=== PATIENT | male | born 1940 | race Caucasian/White ===

== ENCOUNTER 2017-09-07 16:58 | Inpatient (IN) | payer MEDICARE ==
[~2017-09-07] VITALS: Ht 182.9 cm; Wt 86.2 kg
[2017-09-07 18:17] LABS: BASOPHILS % 1.1 % (0.0-2.0); EOSINOPHILS % 6.6 % (0.0-5.0); MEAN CORPUSCULAR HEMOGLOBIN 25.5 pg (28.0-32.0); MEAN CORPUSCULAR VOLUME 82.2 fL (80.0-94.0); MEAN PLATELET VOLUME 8.4 fl (7.4-10.4); MONOCYTES % 8.1 % (2.0-8.0); NEUTROPHILS % 66.2 % (40.0-76.0); PLATELET 267 x1000/uL (130-400); RED BLOOD CELL COUNT 2.54 mill/uL (4.7-6.1); RED CELL DISTRIBUTION WIDTH 18.5 % (11.6-14.6)
[2017-09-07 18:19] LABS: CARBON DIOXIDE 18 mEq/L (21-32); CHLORIDE 114 mEq/L (98-107)
[2017-09-07 18:22] LABS: INR 1.1; PARTIAL THROMBOPLASTIN TIME 28.5 sec (23.4-31.0)
[2017-09-07 18:25] LABS: HEMATOCRIT. 20.9 % (42.0-52.0); HEMOGLOBIN. 6.5 g/dL (14.0-18.0)
[2017-09-07 18:28] LABS: PHOSPHORUS 4.8 mg/dL (2.5-4.9); TROPONIN I < 0.02 ng/mL (0.00-0.04)
[2017-09-07 19:00] LABS: TOTAL IRON BINDING CAPACITY 418 ug/dL (250-450)
[2017-09-07] MEDS ORDERED: SODIUM CHLORIDE 0.9% 1,000 ML IV SCH (20:49)
[2017-09-07] MEDS ORDERED: ZOLPIDEM TARTRATE 5MG TABLET PO PRN (21:00)
[2017-09-07] MEDS ORDERED: DOCUSATE SODIUM 100MG CAPSULE PO PRN (21:00)
[2017-09-07] MEDS ORDERED: ONDANSETRON HCL 4MG/2ML VIAL IV PRN (21:00)
[2017-09-07] MEDS ORDERED: ACETAMINOPHEN 325MG TABLET PO PRN (21:00)
[2017-09-07] MEDS ORDERED: CLONIDINE 0.1MG TABLET PO PRN (21:00)
[2017-09-07] MEDS ORDERED: IPRATROPIUM/ALBUTEROL 0.5-3(2.5)MG/3ML NEB INH PRN (21:00)
[2017-09-07 22:05] VITALS: BP 147/79
[2017-09-07 22:42] VITALS: BP 131/78
[2017-09-08] VITALS (14 sets, daily range): BP systolic 113–157; BP diastolic 57–90
[2017-09-08] MEDS ORDERED: INFLUENZA VIRUS VACCINE 0.5ML SYR IM ONE (08:00)
[2017-09-08] MEDS: PANTOPRAZOLE SODIUM 40 MG/VIAL IV SCH (08:43)
[2017-09-08] MEDS: FERROUS SULFATE 325MG TABLET PO SCH ×3 (08:44→18:52)
[2017-09-08] MEDS ORDERED: LIDOCAINE HCL 2% JELLY 5ML TOP NR (11:45)
[2017-09-08 13:20] LABS: BASOPHILS % 0.9 % (0.0-2.0); EOSINOPHILS % 1.4 % (0.0-5.0); HEMATOCRIT. 21.1 % (42.0-52.0); LYMPHOCYTES % 9.5 % (20.0-50.0); MEAN CORPUSCULAR HEMOGLOBIN 25.4 pg (28.0-32.0); MEAN CORPUSCULAR VOLUME 82.6 fL (80.0-94.0); MEAN PLATELET VOLUME 8.7 fl (7.4-10.4); MONOCYTES % 5.7 % (2.0-8.0); NEUTROPHILS % 82.5 % (40.0-76.0); PLATELET 230 x1000/uL (130-400); RED BLOOD CELL COUNT 2.55 mill/uL (4.7-6.1); RED CELL DISTRIBUTION WIDTH 18.4 % (11.6-14.6)
[2017-09-08 13:23] LABS: HEMOGLOBIN. 6.5 g/dL (14.0-18.0)
[2017-09-08 13:52] LABS: CARBON DIOXIDE 20 mEq/L (21-32); CHLORIDE 117 mEq/L (98-107); CREATINE KINASE 74 IU/L (39-308); PHOSPHORUS 3.8 mg/dL (2.5-4.9)
[2017-09-08 15:54] LABS: CLARITY URINE CLEAR (CLEAR); COLOR URINE YELLOW (YELLOW); GLUCOSE URINE NEGATIVE (NEGATIVE); KETONES URINE NEGATIVE (NEGATIVE); LEUKOCYTE ESTERASE URINE NEGATIVE (NEGATIVE); NITRITE URINE NEGATIVE (NEGATIVE); OCCULT BLOOD URINE NEGATIVE (NEGATIVE); PH URINE 5.5 (4.5-8.0); PROTEIN URINE NEGATIVE (NEGATIVE); SPECIFIC GRAVITY URINE 1.013 (1.005-1.030); UROBILINOGEN URINE 0.2 E.U./dL (0.2-1.0)
[2017-09-08] MEDS ORDERED: SORBITOL 70% SOLN 30ML PO NR ×2 (16:00→20:00)
[2017-09-08 16:16] LABS: *AMPHETAMINES SCREEN URINE NEGATIVE (NEGATIVE); *BARBITURATES SCREEN URINE NEGATIVE (NEGATIVE); *BENZODIAZEPINES SCREEN URINE NEGATIVE (NEGATIVE); *COCAINE SCREEN URINE NEGATIVE (NEGATIVE); CANNABINOID URINE SCREEN NEGATIVE (NEGATIVE); METHADONE URINE SCREEN NEGATIVE (NEGATIVE); OPIATES URINE SCREEN NEGATIVE (NEGATIVE); PHENCYCLIDINE URINE SCREEN NEGATIVE (NEGATIVE)
[2017-09-08 18:48] LABS: T4 FREE 0.94 ng/dL (0.76-1.46)
[2017-09-08 19:15] LABS: VITAMIN B12 SERUM 585 pg/mL (211-911)
[2017-09-08 19:19] LABS: FOLIC ACID (FOLATE) SERUM > 20.00 ng/mL (>5.38)
[2017-09-08] MEDS ORDERED: ASCORBIC ACID 500MG/5ML 120ML PO SCH (21:00)
[2017-09-08] MEDS: ASCORBIC ACID 500 MG TABLET PO SCH (22:08)
[2017-09-08 23:16] LABS: HEMATOCRIT 20.2 % (42.0-52.0); HEMOGLOBIN 6.5 g/dL (14.0-18.0)
[2017-09-09] VITALS (8 sets, daily range): BP systolic 94–126; BP diastolic 57–77
[2017-09-09] MEDS ORDERED: NA PHOS,M-B/NA PHOS,DI-BA ENEMA 118ML PR NR (06:00)
[2017-09-09 06:54] LABS: INR 1.1; PARTIAL THROMBOPLASTIN TIME 26.1 sec (23.4-31.0); PROTHROMBIN TIME 11.4 sec (9.4-11.6)
[2017-09-09 07:05] LABS: HEMATOCRIT. 24.6 % (42.0-52.0); HEMOGLOBIN. 7.9 g/dL (14.0-18.0); MEAN CORPUSCULAR HEMOGLOBIN 26.4 pg (28.0-32.0); MEAN CORPUSCULAR VOLUME 82.6 fL (80.0-94.0); MEAN PLATELET VOLUME 9.1 fl (7.4-10.4); PLATELET 247 x1000/uL (130-400); RED BLOOD CELL COUNT 2.98 mill/uL (4.7-6.1)
[2017-09-09] MEDS: FERROUS SULFATE 325MG TABLET PO SCH ×3 (07:50→18:00)
[2017-09-09 08:10] LABS: AMYLASE 91 IU/L (25-115); CARBON DIOXIDE 17 mEq/L (21-32); CHLORIDE 119 mEq/L (98-107)
[2017-09-09] MEDS: ASCORBIC ACID 500 MG TABLET PO SCH ×2 (09:00→21:33)
[2017-09-09] MEDS: PANTOPRAZOLE SODIUM 40 MG/VIAL IV SCH (09:17)
[2017-09-09] MEDS: SODIUM CHLORIDE 0.45% 1,000 ML IV SCH ×2 (10:00→21:33)
[2017-09-09] MEDS ORDERED: MIDAZOLAM HCL 5 MG/5 ML VIAL ONE (11:16)
[2017-09-09] MEDS ORDERED: FENTANYL CITRATE/PF 50MCG/ML 2ML VIAL ONE (11:16)
[2017-09-09] MEDS ORDERED: FENTANYL CITRATE/PF 50MCG/ML 2ML VIAL IV ONE (11:33)
[2017-09-09] MEDS ORDERED: MIDAZOLAM HCL 5 MG/5 ML VIAL IV ONE (11:38)
[2017-09-09] MEDS: DIATR MEGLU/DIATRIZOATE SOLN 30ML PO SCH ×2 (14:46→16:01)
[2017-09-09 16:26] LABS: PLATELET ESTIMATE NORMAL
[2017-09-09 17:12] LABS: ANTI-NUCLEAR ANTIBODIES DIRECT Negative (Negative)
[2017-09-09] MEDS ORDERED: DIATR MEGLU/DIATRIZOATE SOLN 120ML ONE (17:12)
[2017-09-10] VITALS (8 sets, daily range): BP systolic 106–120; BP diastolic 50–67
[2017-09-10 06:13] LABS: A/G RATIO 1.4 (0.7-1.7); ALBUMIN 3.6 g/dL (2.9-4.4); ALPHA-1-GLOBULIN 0.2 g/dL (0.0-0.4); ALPHA-2-GLOBULIN 0.7 g/dL (0.4-1.0); BETA GLOBULIN 0.9 g/dL (0.7-1.3); COMPLEMENT C3 115 mg/dL (82-167); GAMMA GLOBULINS 0.8 g/dL (0.4-1.8); GLOBULIN TOTAL 2.6 g/dL (2.2-3.9); M-SPIKE Not Observed g/dL (Not Observed); TOTAL PROTEIN SERUM 6.2 g/dL (6.0-8.5)
[2017-09-10 07:02] LABS: BASOPHILS % 0.9 % (0.0-2.0); EOSINOPHILS % 3.2 % (0.0-5.0); HEMATOCRIT. 22.7 % (42.0-52.0); HEMOGLOBIN. 7.3 g/dL (14.0-18.0); LYMPHOCYTES % 10.1 % (20.0-50.0); MEAN CORPUSCULAR HEMOGLOBIN 26.2 pg (28.0-32.0); MEAN CORPUSCULAR VOLUME 82.2 fL (80.0-94.0); NEUTROPHILS % 77.8 % (40.0-76.0); PLATELET 193 x1000/uL (130-400); RED BLOOD CELL COUNT 2.77 mill/uL (4.7-6.1); RED CELL DISTRIBUTION WIDTH 18.2 % (11.6-14.6)
[2017-09-10] MEDS ORDERED: SODIUM CHLORIDE 0.9% 10ML VIAL ONE (09:09)
[2017-09-10] MEDS ORDERED: SIMETHICONE 40 MG/0.6 ML 30ML ONE (09:09)
[2017-09-10] MEDS: ASCORBIC ACID 500 MG TABLET PO SCH ×2 (10:21→20:23)
[2017-09-10] MEDS: PANTOPRAZOLE SODIUM 40 MG/VIAL IV SCH (10:21)
[2017-09-10] MEDS: FERROUS SULFATE 325MG TABLET PO SCH ×3 (10:21→18:06)
[2017-09-10 20:46] LABS: BASOPHILS % 0.6 % (0.0-2.0); EOSINOPHILS % 5.6 % (0.0-5.0); HEMATOCRIT. 24.8 % (42.0-52.0); LYMPHOCYTES % 14.2 % (20.0-50.0); MEAN CORPUSCULAR HEMOGLOBIN 27.3 pg (28.0-32.0); MEAN CORPUSCULAR VOLUME 84.6 fL (80.0-94.0); MEAN PLATELET VOLUME 8.2 fl (7.4-10.4); MONOCYTES % 10.4 % (2.0-8.0); NEUTROPHILS % 69.2 % (40.0-76.0); PLATELET 206 x1000/uL (130-400); RED BLOOD CELL COUNT 2.94 mill/uL (4.7-6.1); RED CELL DISTRIBUTION WIDTH 18.9 % (11.6-14.6)
[2017-09-11] VITALS (8 sets, daily range): BP systolic 105–124; BP diastolic 49–72
[2017-09-11 06:54] LABS: HEMATOCRIT. 25.8 % (42.0-52.0); HEMOGLOBIN. 8.6 g/dL (14.0-18.0); MEAN CORPUSCULAR HEMOGLOBIN 27.8 pg (28.0-32.0); MEAN CORPUSCULAR VOLUME 83.7 fL (80.0-94.0); MEAN PLATELET VOLUME 8.8 fl (7.4-10.4); PLATELET 184 x1000/uL (130-400); RED BLOOD CELL COUNT 3.08 mill/uL (4.7-6.1); RED CELL DISTRIBUTION WIDTH 18.1 % (11.6-14.6)
[2017-09-11] MEDS: FERROUS SULFATE 325MG TABLET PO SCH ×3 (08:35→18:29)
[2017-09-11] MEDS: ASCORBIC ACID 500 MG TABLET PO SCH (08:35)
[2017-09-11] MEDS: PANTOPRAZOLE SODIUM 40 MG/VIAL IV SCH (08:36)
[2017-09-12] MEDS ORDERED: FAMOTIDINE 20MG TABLET PO SCH (09:00)
[2017-09-12 16:31] LABS: PLATELET ESTIMATE NORMAL
== END 2017-09-11 20:00 | DRG 374 ==
LOC: ER 17:14 → 6EST 19:03 → SUPCPDRO 19:14 → ENRESERV 20:24 → EDBEDREQ 22:02
PROVIDERS: ADMIT Family Medicine Adult Medicine; ATTEND Family Medicine Adult Medicine
PROC: 30233N1 Transfusion of Nonautologous Red Blood Cells into Peripheral Vein, Percutaneous Approach (ICD-10-PCS; 2017-09-08)
PROC: 0DBE8ZX Excision of Large Intestine, Via Natural or Artificial Opening Endoscopic, Diagnostic (ICD-10-PCS; 2017-09-09)
PROC: 0DB68ZX Excision of Stomach, Via Natural or Artificial Opening Endoscopic, Diagnostic (ICD-10-PCS; principal; 2017-09-09 10:00)
DX: C18.7 Malignant neoplasm of sigmoid colon (principal); N17.0 Acute kidney failure with tubular necrosis; G93.40 Encephalopathy, unspecified; K63.3 Ulcer of intestine; K29.71 Gastritis, unspecified, with bleeding; K57.31 Diverticulosis of large intestine without perforation or abscess with bleeding; N13.30 Unspecified hydronephrosis; N32.0 Bladder-neck obstruction; E87.5 Hyperkalemia; G20 Parkinson's disease; D50.9 Iron deficiency anemia, unspecified; F12.90 Cannabis use, unspecified, uncomplicated; E86.0 Dehydration; I12.9 Hypertensive chronic kidney disease with stage 1 through stage 4 chronic kidney disease, or unspecified chronic kidney disease; F03.90 Unspecified dementia, unspecified severity, without behavioral disturbance, psychotic disturbance, mood disturbance, and anxiety; F17.210 Nicotine dependence, cigarettes, uncomplicated; H54.61 Unqualified visual loss, right eye, normal vision left eye; I71.4 Abdominal aortic aneurysm, without rupture; K21.9 Gastro-esophageal reflux disease without esophagitis; K44.9 Diaphragmatic hernia without obstruction or gangrene; K63.5 Polyp of colon; M19.90 Unspecified osteoarthritis, unspecified site; N18.9 Chronic kidney disease, unspecified; N39.41 Urge incontinence; N40.1 Benign prostatic hyperplasia with lower urinary tract symptoms; R33.8 Other retention of urine; Z82.49 Family history of ischemic heart disease and other diseases of the circulatory system; Z85.038 Personal history of other malignant neoplasm of large intestine; Z86.73 Personal history of transient ischemic attack (TIA), and cerebral infarction without residual deficits; Z86.74 Personal history of sudden cardiac arrest; Z87.820 Personal history of traumatic brain injury; Z91.19 Patient's noncompliance with other medical treatment and regimen
CPT/HCPCS: 36415; 70450; 71010; 72125; 72128; 72131; 74176; 76770; 80048; 80053; 80076; 80305; 81003; 82150; 82270; 82378; 82550; 82575; 82607; 82746; 83036; 83540; 83550; 83690; 83735; 83880; 84100; 84155; 84165; 84439; 84443; 84481; 84484; 85014; 85018; 85025; 85044; 85384; 85610; 85730; 86038; 86160; 86677; 86850; 86870; 86900; 86920; 87086; 88305; 88312; 88313; 93005; 93306; 93970; 97162; 97166; 97535; 99152; 99291; A4216; C9113; J2250; J3010; J7030; J7040; P9016; Q9963; A4315